=== PATIENT | female | born 1945 | race Caucasian/White ===

== ENCOUNTER 2016-08-28 13:36 | Emergency (ER) | payer MEDICARE, OTHER | END 2016-08-28 17:40 | disposition home or self-care (01) | LOC: ER 13:36 | DX: J84.89 Other specified interstitial pulmonary diseases (principal); E11.9 Type 2 diabetes mellitus without complications; Z90.710 Acquired absence of both cervix and uterus; Z79.899 Other long term (current) drug therapy | CPT/HCPCS: 36415; 96361; 96365 ==

== ENCOUNTER 2016-11-02 07:42 | Emergency (ER) | payer MEDICARE | END 2016-11-02 09:15 | disposition critical access hospital (66) | LOC: ER 07:42 | DX: I24.9 Acute ischemic heart disease, unspecified (principal); M06.9 Rheumatoid arthritis, unspecified; Z90.710 Acquired absence of both cervix and uterus | CPT/HCPCS: 36415; 96365; 96368; J1644 ==